=== PATIENT | female | born 1965 | race Caucasian/White ===

== ENCOUNTER 2018-10-02 10:23 | Emergency (ER) | payer MEDICARE, MEDICAID ==
[~2018-10-02] VITALS: Ht 162.6 cm; Wt 113.4 kg
[2018-10-02 10:23] VITALS: BP_SYST 159
[2018-10-02 10:52] VITALS: BP_SYST 159
== END 2018-10-02 10:59 | disposition home or self-care (01) ==
LOC: SED 10:23
DX: J06.9 Acute upper respiratory infection, unspecified (principal); J45.909 Unspecified asthma, uncomplicated; E11.9 Type 2 diabetes mellitus without complications; I10 Essential (primary) hypertension
CPT/HCPCS: 99283

== ENCOUNTER 2018-12-05 09:23 | Emergency (ER) | payer MEDICAID, MEDICARE ==
[~2018-12-05] VITALS: Ht 170.2 cm; Wt 113.4 kg
[2018-12-05 09:42] VITALS: BP_SYST 178
--- NOTE | 2018-12-05 09:46 | NUR ---
Patient to ER bed 05 to gown for evaluation. Side rails up.
--- NOTE | 2018-12-05 10:00 | NUR ---
Patient arrived via POV, AAOx4, and ambulatory with steady gait. Patient brought in by family. Patient c/c of right arm pain. Patient states she had surgery 2 years ago on her right wrist, and patient has had chronic pain since. When she has stresses, it exacerbates the pain. Patient has been following up with psychiatrist, seen yesterday. Patient takes medications for anxiety and depression. Patient did state intermittent chest pain when her anxiety level was high. Family is at bedside for comfort. Patient calm and consolable, able to discussion issues and treatments. Will continue to follow up and monitor.
--- NOTE | 2018-12-05 10:45 | NUR ---
ER at bedside examining patient.
[2018-12-05] MEDS ORDERED: LORazepam 1 MG TABLET PO ONE (11:00)
[2018-12-05 12:35] VITALS: BP_SYST 151
--- NOTE | 2018-12-05 12:35 | NUR ---
Patient given written and verbal discharge instructions and verbalizes understanding. ER MD discussed with patient the results and treatment provided. Patient in stable condition. ID arm band removed. No Rx given. Patient educated on pain management and to follow up with PMD. Pain Scale 3/10, arm pain. Opportunity for questions provided and answered. Medication side effect fact sheet provided.
== END 2018-12-05 12:35 | disposition home or self-care (01) ==
LOC: SED 09:23
DX: F41.9 Anxiety disorder, unspecified (principal); F32.9 Major depressive disorder, single episode, unspecified; J45.909 Unspecified asthma, uncomplicated; E11.9 Type 2 diabetes mellitus without complications; I10 Essential (primary) hypertension
CPT/HCPCS: 73090; 93005; 99283